=== PATIENT | female | born 1955 | race American Indian/Alaskan Native ===

== ENCOUNTER 2019-07-08 08:33 | Outpatient (CLI) | payer MEDICARE ==
[2019-07-08 09:11] LABS: Hematocrit 34.9 % (30.3-42.9); Hemoglobin 11.5 gm/dl (10.1-14.3); Mean Corpuscular HGB Conc 33 % (30-34); Mean Corpuscular Volume 92 fl (79-97); Platelet Count 304 K/mm3 (140-440); Red Blood Count 3.82 M/mm3 (3.65-5.03); Red Cell Distribution Width 14.1 % (13.2-15.2)
[2019-07-08 09:36] LABS: Albumin 4.1 g/dL (3.9-5); Calcium 9.8 mg/dL (8.4-10.2); Erythrocyte Sedimentation Rate 53 mm/Hr (0-20)
[2019-07-11 16:44] LABS: Vitamin D, 25-OH, D2 <4 ng/mL
[2019-07-12 12:33] LABS: ANA Screen, IFA Negative (Negative)
== END 2019-07-08 08:34 | disposition home or self-care (01) ==
LOC: LAB 08:33
PROVIDERS: ATTEND Specialist
DX: G57.43 Lesion of medial popliteal nerve, bilateral lower limbs (principal); G62.9 Polyneuropathy, unspecified; D64.9 Anemia, unspecified; E20.9 Hypoparathyroidism, unspecified; R79.89 Other specified abnormal findings of blood chemistry; Z11.59 Encounter for screening for other viral diseases
CPT/HCPCS: 36415; 80053; 82306; 82607; 83036; 83921; 84443; 85027; 85652; 86038; 86225; 86334; 86431; 86592